=== PATIENT | female | born 2000 | race Two or more races ===

== ENCOUNTER 2024-01-31 20:16 | Emergency (ER) | payer MEDICAID, SELFPAY ==
[2024-01-31 20:16] VITALS: BMI 34.0
[2024-01-31 20:49] VITALS: BP 113/74; PULSE 115; RESP 18; TEMP 39.5; O2SAT 98
--- NOTE | 2024-01-31 21:20 | EDNOTE_ITS ---
Upper Respiratory Inf. RME/HPI General Chief Complaint: Flu Like Symptoms Stated Complaint: FLU SYMPTOMS/ FEVER/ COUGH X 3DAYS Time Seen by Provider: 01/31/24 21:10 Arrival date/time: 01/31/24 20:16 24F with no significant PMH presents to ED with 3 days of cough, fevers/chills, and TO. Limitations: no limitations Related Data Home Medications ?Medication ?Instructions ?Recorded ?Confirmed No Known Home Medications 03/06/18 03/06/18 Allergies Allergy/AdvReac Type Severity Reaction Status Date / Time No Known Allergies Allergy Unverified 03/06/18 14:39 Review of Systems Review of Systems Systems Reviewed: All systems reviewed, normal except as documented Constitutional Constitutional: Reports system reviewed and no additional complaints, except as documented, Reports as per HPI, Reports chills, Reports fever(s) and Reports headache(s) ENT Ears, Nose, Mouth, and Throat: Denies disequilibrium and Reports headache(s) Cardiovascular Cardiovascular: Reports system reviewed and no additional complaints, except as documented, Denies chest pain and Denies dyspnea Respiratory Respiratory: Reports system reviewed and no additional complaints, except as documented, Reports as per HPI, Reports cough and Denies dyspnea Gastrointestinal Gastrointestinal: Reports system reviewed and no additional complaints, except as documented, Denies abdominal pain, Denies nausea and Denies vomiting Neurologic Neurologic: Reports system reviewed and no additional complaints, except as documented, Denies confusion, Denies disequilibrium and Reports headache(s) Psychiatric Psychiatric: Denies confusion Past Medical History Surgical History SURGICAL: Negative Section Social History SMOKING STATUS: Never smoker ED Exam General Limitations: Present no limitations General appearance: Present alert and in no apparent distress Head Head exam: Present atraumatic Eye Eye exam: Present normal appearance, PERRL and EOMI ENT ENT exam: Present normal exam, normal oropharynx and mucous membranes moist Neck Neck exam: Present normal inspection, full ROM and trachea midline Chest Chest inspection: Present normal inspection and symmetric chest wall rise Respiratory Respiratory exam: Present normal lung sounds bilaterally Cardiovascular Cardiovascular exam: Present regular rate, normal rhythm and normal heart sounds Abdominal Exam Abdominal exam: Present soft and normal bowel sounds Extremities Exam Extremities exam: Present normal inspection and full ROM Back Exam Back exam: Present normal inspection and full ROM Neurological Exam Neurological exam: Present alert, oriented X3 and CN II-XII intact Psychiatric Psychiatric exam: Present normal affect and normal mood Skin Skin exam: Present warm, dry, intact and normal color Course Quality Measures none Orders Category Date Time Status Bedside COVID-19 Antigen Test NOW Care 01/31/24 20:28 Completed Bedside Influenza A&B Antigen Test NOW Care 01/31/24 20:29 Completed Acetaminophen Tab [Tylenol ES Tab] Med 01/31/24 21:12 Discontinued 1,000 mg PO X1 ONE Ketorolac Inj [Toradol Inj] Med 01/31/24 21:12 Discontinued 60 mg IM X1 ONE Metoclopramide [Reglan] Med 01/31/24 21:12 Discontinued 10 mg PO X1 ONE Vital Signs Vital signs: Vital Signs Temperature 103.1 F H 01/31/24 20:49 Pulse Rate 115 H 01/31/24 20:49 Respiratory Rate 18 01/31/24 20:49 Blood Pressure 113/74 01/31/24 20:49 Pulse Oximetry (%) 98 01/31/24 20:49 Oxygen Delivery Method Room Air 01/31/24 20:49 O2 at 98% on RA and WNLs Upper Respiratory Infection MDM Narrative MDM Narrative:: 24F with no significant PMH presents to ED with 3 days of cough, fevers/chills, and TO. Physical exam reveals clear ENT and lungs. Normal pupil response and EOM. No neck tenderness/stiffness. ROM intact. Patient is febrile, but does not appear toxic. Flu A+. Patient eloped prior to DC. Patient data External records reviewed:: [facility] previous records Clinical information provided by:: patient Social determinants that could affect healthcare access:: none Patient has the following chronic illnesses:: none How is presenting disease/condition affected by chronic disease/condition?: no chronic disease Evaluation data The following diagnostics were reviewed and interpreted by me:: lab results Lab and/or radiology exams considered but not ordered:: ordered Interpretation Summary: above Medications / Prescriptions Medications or Prescriptions considered but not ordered:: ordered Medication administrations:: Medication Administration History Discontinued Medications Acetaminophen (Acetaminophen 500 Mg Tablet) 1,000 mg PO X1 ONE Stop: 01/31/24 21:13 Last Admin: 01/31/24 21:41 Dose: 1,000 mg Documented By: MICHELLE Ketorolac Tromethamine (Ketorolac Inj 60 Mg/2 Ml Vial) 60 mg IM X1 ONE Stop: 01/31/24 21:13 Last Admin: 01/31/24 21:42 Dose: 60 mg Documented By: MICHELLE Metoclopramide HCl (Metoclopramide 5 Mg Tablet) 10 mg PO X1 ONE Stop: 01/31/24 21:13 Last Admin: 01/31/24 21:42 Dose: 10 mg Documented By: MICHELLE above Consultations Consultation(s) initiated? (list below): No Diagnosis Upper Respiratory Differential Diagnosis: upper respiratory infection, croup, otitis media, sinusitis, viral infection, bronchitis, influenza and pharyngitis Most likely diagnosis given after review of the tests above:: flu A Admission Indicated Admission indicated?: not indicated Admission Request Was there a request for admission?: No Disposition Plan Disposition Plan: Discharge Discharge Attestation Discharge Attestation: The patient and all family members were given an opportunity to ask questions and understood the discharge instructions. Discharge instructions specifically effects, indications for sooner follow up or return to the emergency department, and the expected course of current diagnosis. Patient condition: Stable Discharge Plan Plan Patient Disposition: Elopement Prescriptions/Referrals Prescriptions/Med Rec: No Action No Known Home Medications Referrals: Temporary Provider,ED [Physician] - In 1 week Problem List Clinical Impression: Influenza A Patient/Caregiver Discharge Instructions Print Language: [place] MANE/LAYNE Supervising Physician MANE/DIRECTOR OF PULMONARY UNIT Supervising Physician: Dr. Henson
[2024-01-31 21:41] VITALS: TEMP 39.5
[2024-01-31] MEDS: ACETAMINOPHEN 500 MG TABLET 1000 MG PO (21:41)
[2024-01-31] MEDS: KETOROLAC INJ 60 MG/2 ML VIAL IM (21:42)
[2024-01-31] MEDS: METOCLOPRAMIDE 5 MG TABLET 10 MG PO (21:42)
--- NOTE | 2024-01-31 23:05 | PC.NURSE ---
Addendum entered by Doreen Pulido 01/31/24 23:17: called for pt, no answerx2 @ [id number] Original Note: called for pt from lobby/outside, no answerx1@ [id number]
--- NOTE | 2024-01-31 23:30 | PC.NURSE ---
no answer at er lobby or outside er.
== END 2024-01-31 23:31 | disposition left against medical advice (07) ==
LOC: SERX 21:37
PROVIDERS: Emergency Provider Emergency Medicine
DX: J10.1 Influenza due to other identified influenza virus with other respiratory manifestations (principal); Z53.29 Procedure and treatment not carried out because of patient's decision for other reasons
CPT/HCPCS: 87400; 87811; 96372; 99281; J1885; A9270